=== PATIENT | female | born 1950 | race American Indian/Alaskan Native ===

== ENCOUNTER 2017-03-04 20:13 | Emergency (ER) | payer MEDICARE ==
[2017-03-04 21:13] VITALS: BP 228/114
[2017-03-04 22:10] LABS: Anion Gap 16 mmol/L; BUN/Creatinine Ratio 17.14; Blood Urea Nitrogen 12 mg/dL (7-17); Calcium 10.2 mg/dL (8.4-10.2); Carbon Dioxide 29 mmol/L (22-30); Chloride 93.6 mmol/L (98-107); Glucose 451 mg/dL (65-100); Potassium 3.9 mmol/L (3.6-5.0); Sodium 135 mmol/L (137-145)
[2017-03-04 22:13] LABS: Hematocrit 41.9 % (30.3-42.9); Hemoglobin 14.2 gm/dl (10.1-14.3); Mean Corpuscular HGB Conc 34 % (30-34); Mean Corpuscular Hemoglobin 33 pg (28-32); Mean Corpuscular Volume 96 fl (79-97); Platelet Count 271 K/mm3 (140-440); Red Blood Count 4.38 M/mm3 (3.65-5.03); Red Cell Distribution Width 12.9 % (13.2-15.2); White Blood Count 9.8 K/mm3 (4.5-11.0)
[2017-03-04 22:58] LABS: Bacteria,Urine 1+ /HPF (Negative); Bilirubin,Urine NEG (Negative); Blood,Urine MOD (Negative); Ketones,Urine NEG (Negative); Leukocyte Esterase,Urine LG (Negative); Mucus,Urine FEW /HPF; Nitrite,Urine NEG (Negative); Protein,Urine <15 mg/dL mg/dL (Negative); Urobilinogen,Urine < 2.0 mg/dL (<2.0)
--- NOTE | 2017-03-05 12:36 | ED Elopement Review ---
ED Pt Elopement review - Results review Lab results: Laboratory Tests 03/04/17 03/04/17 03/04/17 21:14 21:35 21:35 WBC 9.8 RBC 4.38 Hgb 14.2 Hct 41.9 MCV 96 MCH 33 H MCHC 34 RDW 12.9 L Plt Count 271 VBG pH Sodium 135 L Potassium 3.9 Chloride 93.6 L Carbon Dioxide 29 Anion Gap 16 BUN 12 Creatinine 0.7 Estimated GFR > 60 BUN/Creatinine Ratio 17.14 Glucose 451 H POC Glucose 393 H Calcium 10.2 Urine Color Urine Turbidity Urine pH Ur Specific [place] Urine Protein Urine Glucose (UA) Urine Ketones Urine Blood Urine Nitrite Urine Bilirubin Urine Urobilinogen Ur Leukocyte Esterase Urine WBC (Auto) Urine RBC (Auto) U Epithel Cells (Auto) Urine Bacteria (Auto) Urine Mucus 03/04/17 03/04/17 21:35 21:59 WBC RBC Hgb Hct MCV MCH MCHC RDW Plt Count VBG pH 7.355 Sodium Potassium Chloride Carbon Dioxide Anion Gap BUN Creatinine Estimated GFR BUN/Creatinine Ratio Glucose POC Glucose Calcium Urine Color Straw Urine Turbidity Slightly-cloudy Urine pH 7.0 Ur Specific [place] 1.026 Urine Protein <15 mg/dl Urine Glucose (UA) >=500 Urine Ketones Neg Urine Blood Mod Urine Nitrite Neg Urine Bilirubin Neg Urine Urobilinogen < 2.0 Ur Leukocyte Esterase Lg Urine WBC (Auto) 25.0 H Urine RBC (Auto) 12.0 U Epithel Cells (Auto) 7.0 Urine Bacteria (Auto) 1+ Urine Mucus Few - Call Back decision Pt Call Back Decision: No action required
== END 2017-03-04 23:55 | disposition left against medical advice (07) ==
LOC: ED 20:13
DX: H53.149 Visual discomfort, unspecified (principal); Z53.21 Procedure and treatment not carried out due to patient leaving prior to being seen by health care provider
CPT/HCPCS: 36415; 80048; 81001; 82805; 82962; 85027; 93005; 93010

== ENCOUNTER 2017-03-05 10:35 | Emergency (ER) | payer MEDICARE ==
--- NOTE | 2017-03-05 12:35 | Emergency Department Report ---
Chief Complaint: Neuro Symptoms/Deficit Stated Complaint: BLURRED VISION/UNSTABLE Time Seen by Provider: 03/05/17 12:30 - HPI History of Present Illness: 66-year-old female with a history of metformin supposed to be on glyburide and metformin was not taking that for 2 years presents complaining of blurry vision and mild headache times a couple of days. sHe admits generalized body ache She didn't see the logistics engineering manager/loss of vision/nausea/vomiting/dizziness or shortness of breath. - ROS Review of Systems: as noted in HPI - Exam Vital Signs: Vital Signs 03/05/17 11:55 Temperature 98.1 F Pulse Rate 105 H Respiratory 19 Rate Blood Pressure 200/98 O2 Sat by Pulse 100 Oximetry Physical Exam: GENERAL: Alert and oriented x3, no apparent distress, Normal Gait, atraumatic. HEAD: Head is normocephalic and a-traumatic. EYES: Extra ocular muscles are intact. Pupils are equal, round, and reactive to light and accommodation. LUNGS: Symetrical with respiration, No wheezing, no rales or crackles, CTAB. HEART: S1, S2 present, regular rate and rhythm without murmur, no rubs, no gallops. NEUROLOGIC: No neuro deficit. Firm grasp bilaterally. MSE screening note: Focused history and physical exam performed. Due to findings the following was ordered: ED Medical Decision Making - Medical Decision Making Hyperglycemia protocol is ordered. CT of the head ordered. Patient to be seen in main ED ED Disposition for MSE Condition: Stable
--- NOTE | 2017-03-05 13:00 | Cat Scan Report ---
Cranial CT without contrast. History: Headaches/blurred vision. Findings: The brain sinusitis. The brain parenchyma is normal. There is no evidence of acute hemorrhage or infarct. The ventricles are normal in size and contour. There are no masses or extra-axial collections. The calvarium is intact. There is evidence of chronic ethmoid sinusitis. Impression: No acute findings.
[2017-03-05 13:50] LABS: Bacteria,Urine 1+ /HPF (Negative); Bilirubin,Urine NEG (Negative); Blood,Urine LG (Negative); Ketones,Urine 20 mg/dL (Negative); Leukocyte Esterase,Urine LG (Negative); Mucus,Urine FEW /HPF; Nitrite,Urine NEG (Negative); Urobilinogen,Urine < 2.0 mg/dL (<2.0)
[2017-03-05 13:52] LABS: Basophils % (Auto) 0.7 % (0.0-1.8); Eosinophils % (Auto) 2.7 % (0.0-4.3); Hematocrit 40.9 % (30.3-42.9); Hemoglobin 13.8 gm/dl (10.1-14.3); Mean Corpuscular HGB Conc 34 % (30-34); Mean Corpuscular Hemoglobin 32 pg (28-32); Mean Corpuscular Volume 96 fl (79-97); Platelet Count 261 K/mm3 (140-440); Red Blood Count 4.26 M/mm3 (3.65-5.03); Red Cell Distribution Width 12.9 % (13.2-15.2); White Blood Count 8.3 K/mm3 (4.5-11.0)
[2017-03-05] MEDS ORDERED: NORMODYNE IV ONE (14:32)
[2017-03-05 14:37] LABS: Anion Gap 19 mmol/L; BUN/Creatinine Ratio 12.85; Blood Urea Nitrogen 9 mg/dL (7-17); Calcium 10.3 mg/dL (8.4-10.2); Carbon Dioxide 27 mmol/L (22-30); Chloride 96.8 mmol/L (98-107); Glucose 318 mg/dL (65-100); Potassium 4.3 mmol/L (3.6-5.0); Sodium 138 mmol/L (137-145)
[2017-03-05] MEDS ORDERED: ROCEPHIN/NS 1 GM/50 ML 1 GM/50 ML BAG IV ONE (14:55)
--- NOTE | 2017-03-05 14:59 | Emergency Department Report ---
HPI - General Chief Complaint: Neuro Symptoms/Deficit Time Seen by Provider: 03/05/17 12:30 - HPI HPI: 66-year-old female presents to the emergency department from home with complaint of some blurry vision, nausea without vomiting and just "feeling bad" since Friday, 3 days ago. Patient denies any slurred speech, facial droop, problems with ambulation or motor function, headache, chest pain or shortness of breath. She has a past medical history of non-insulin dependent diabetes, hypertension and coronary artery disease with stents. The patient presents with very elevated blood pressure and admits to being out of her blood pressure medication for the past few months. She is unsure of all the medications used to be on but does remember Exforge. Her primary care doctor is recently been switched to a Dr. Valles. She denies any tobacco or illicit drug use. She has not taken anything for symptoms prior to presentation. No recent travel or sick contacts at home. ED Past Medical Hx - Past Medical History Hx Hypertension: Yes Hx Diabetes: Yes Additional medical history: CAD - Surgical History Hx Coronary Stent: Yes (X 2) Additional Surgical History: ECTOPIC PREG (LEFT). PARTIAL HYSTERECTOMY. T & A - Social History Smoking Status: Current Every Day Smoker Substance Use Type: None - Medications Home Medications: Home Medications Medication Instructions Recorded Confirmed Last Taken Type amLODIPine [Norvasc] 10 mg PO DAILY #30 tab 03/05/17 Unknown Rx ED Review of Systems ROS: Stated complaint: BLURRED VISION/UNSTABLE Other details as noted in HPI Comment: All other systems reviewed and negative Constitutional: denies: chills, fever Eyes: vision change. denies: eye pain ENT: denies: ear pain, throat pain Respiratory: denies: cough, shortness of breath, wheezing Cardiovascular: denies: chest pain, palpitations Gastrointestinal: nausea. denies: vomiting Genitourinary: denies: urgency, dysuria, discharge Musculoskeletal: denies: back pain, joint swelling, arthralgia Skin: denies: rash, lesions Neurological: denies: headache, weakness Physical Exam - Physical Exam Vital Signs: Vital Signs 03/05/17 03/05/17 03/05/17 11:55 13:54 14:51 Temperature 98.1 F Pulse Rate 105 H 100 H 95 H Respiratory 19 15 Rate Blood Pressure 200/98 201/88 Blood Pressure 205/104 [Right] O2 Sat by Pulse 100 99 Oximetry Physical Exam: GENERAL: The patient is well-developed well-nourished. HEENT: Normocephalic. Atraumatic. Extraocular motions are intact. Patient has moist mucous membranes. Pupils equal reactive to light bilaterally. Visual acuity: OD 20/70, OS 20/40, both eyes 20/50. No nystagmus. NECK: Supple. Trachea is midline. CHEST/LUNGS: Clear to auscultation. There is no respiratory distress noted. HEART/CARDIOVASCULAR: Regular. There is no tachycardia. There is no gallop rub or murmur. ABDOMEN: Abdomen is soft, nontender. Patient has normal bowel sounds. There is no abdominal distention. SKIN: There is no rash. There is no edema. There is no diaphoresis. NEURO: The patient is awake, alert, and oriented. The patient is cooperative. The patient has no focal neurologic deficits. The patient has normal speech and gait. Cranial nerves II through XII grossly intact. No pronator drift. No dysmetria. MUSCULOSKELETAL: There is no tenderness or deformity. There is no limitation range of motion. There is no evidence of acute injury. Muscle strength 5 out of 5 upper and lower Chev[place] bilaterally. Cap refill less than 2 seconds. ED Course Vital Signs 03/05/17 03/05/17 03/05/17 11:55 13:54 14:51 Temperature 98.1 F Pulse Rate 105 H 100 H 95 H Respiratory 19 15 Rate Blood Pressure 200/98 201/88 Blood Pressure 205/104 [Right] O2 Sat by Pulse 100 99 Oximetry ED Medical Decision Making - Lab Data Result diagrams: 03/05/17 13:09 03/05/17 13:09 - EKG Data -: EKG Interpreted by [facility] EKG shows normal: sinus rhythm, axis, intervals, QRS complexes (LVH), ST-T waves Rate: tachycardia (103 bpm) - EKG Data When compared to previous EKG there are: previous EKG unavailable Interpretation: LVH - Radiology Data Radiology results: report reviewed CT of the head does not show any acute process including no hemorrhage, mass, shift, diffuse edema or skull fracture. - Medical Decision Making 66-year-old female presents the emergency department with a few days of some blurry vision, nausea without vomiting and some generalized feelings of being "sick." Patient does not appear to have any focal, motor or sensory deficits. Cranial nerves II through XII are grossly intact. She does have some decreased visual acuity to each eye and bilateral. Patient's labs are mostly unremarkable and do not show any etiology of the patient's symptoms. CT of the head does not show any bleed, shift, mass or any acute process. The patient does present with some hypertensive urgency. She was given 2 different doses of blood pressure medication and eventually came down to a much more reasonable level at about 155/74. Patient was seen ambulatory in the emergency department and appears stable and doing so. Patient was reevaluated multiple times of hours and says she is feeling much better. For this reason the patient was discharged home. She was started on amlodipine. She says she has a primary care doctor for follow-up. She was given referrals for neurology and ophthalmology. She will return to the ER with any worsening of her symptoms or any acute distress. - Differential Diagnosis CVA, TIA, hypertensive urgency, multiple sclerosis Critical Care Time: No Critical care attestation.: If time is entered above; I have spent that time in minutes in the direct care of this critically ill patient, excluding procedure time. ED Disposition Clinical Impression: Hypertensive urgency, Blurred vision Disposition: DISCHARGED TO HOME OR SELFCARE Is pt being admited?: No Condition: Stable Instructions: Hypertension (ED), Blurred Vision (ED) Additional Instructions: Please follow-up with your primary care doctor regarding your elevated blood pressure. Try to stay away from foods that are high in salt and caffeinated products to assist with your blood pressure. Keep a blood pressure log. I have started you on amlodipine 10 mg to be taken once per day. I have also given you a referral for a local neurologist, Dr. Marshall, to follow up regarding your recent symptoms. I've also given you a referral for a local sampling expert, Dr. Hollingsworth, to follow up regarding your blurred vision. Return to the emergency department with any worsening of your symptoms or any acute distress. Prescriptions: amLODIPine [Norvasc] 10 mg PO DAILY #30 tab Referrals: PRIMARY MD ELPIDIO [Primary Care Provider] - 3-5 Days MARISOL MARSHALL MD [Staff Physician] - 3-5 Days JESSICA HOLLINGSWORTH MD [Staff Physician] - 3-5 Days Time of Disposition: 18:15
[2017-03-05 15:11] LABS: Alanine Aminotransferase 17 units/L (7-56); Albumin 3.8 g/dL (3.9-5); Albumin/Globulin Ratio 1.1 %; Alkaline Phosphatase 188 units/L (35-129); Bilirubin,Total 0.4 mg/dL (0.1-1.2); INR 1.09 (0.87-1.13); Total Protein 7.2 g/dL (6.3-8.2)
[2017-03-05 15:12] LABS: Bilirubin,Direct < 0.2 mg/dL (0-0.2); Partial Thromboplastin Time 25.2 Sec. (24.2-36.6)
[2017-03-05] MEDS ORDERED: APRESOLINE IV ONE (16:29)
[2017-03-05 18:07] VITALS: BP 155/74
[2017-03-05 23:01] LABS: Urine Drugs of Abuse Note Disclamer
[2017-03-09 23:31] LABS: B-Hydroxybutyrate 0.2 mmol/L (0.2 - 0.28)
== END 2017-03-05 18:36 | disposition home or self-care (01) ==
LOC: ED 10:35
DX: I10 Essential (primary) hypertension (principal); H53.8 Other visual disturbances; E11.9 Type 2 diabetes mellitus without complications; I25.10 Atherosclerotic heart disease of native coronary artery without angina pectoris; F17.200 Nicotine dependence, unspecified, uncomplicated
CPT/HCPCS: 36415; 70450; 80048; 80074; 80307; 81001; 82010; 82805; 82962; 84443; 84484; 85025; 85610; 85730; 93005; 93010; 96365; 96375; 99285; J0360; J0696